=== PATIENT | male | born 1960 | race Caucasian/White ===

== ENCOUNTER → 2018-08-29 | Outpatient (CLI) | payer BC | LOC: GMAH 16:49 | PROVIDERS: ATTEND Family Medicine | DX: M79.609 Pain in unspecified limb (principal) ==

== ENCOUNTER → 2019-05-09 | Outpatient (CLI) | payer BC ==
--- NOTE | 2019-05-09 14:04 | RAD ---
EXAM DESCRIPTION: Lumbar Spine 5 Views CLINICAL HISTORY: LOW BACK PAIN COMPARISON: None Available. TECHNIQUE: AP/lateral/ coned-down lateral/both obliques FINDINGS: Five views of the lumbar spine were obtained. Five nonrib-bearing lumbar segments are noted. Normal spinal alignment without significant listhesis. The vertebral body heights are maintained. No displaced fracture is seen. Mild to moderate multilevel lumbar spine degenerative changes with intervertebral disc height loss and endplate sclerosis. Mild facet arthrosis at L5-S1. There are no abnormalities of the posterior elements demonstrated. L4-L5 interbody spacer is noted without hardware displacement or complication. IMPRESSION: No radiographic evidence of displaced fracture or dislocation of the lumbar spine. L4-L5 interbody spacer without hardware displacement or complication. Electronically signed by: Lonny Acevedo DO 05/09/2019 2:03 PM CDT
== END ==
LOC: LAB.O 12:23
PROVIDERS: ATTEND Family Medicine
DX: Z00.00 Encounter for general adult medical examination without abnormal findings (principal); M54.5 Low back pain

== ENCOUNTER → 2019-09-11 | Outpatient (CLI) | payer BC | LOC: LAB.O 13:16 | PROVIDERS: ATTEND Family Medicine | DX: E78.5 Hyperlipidemia, unspecified (principal) ==

== ENCOUNTER → 2020-06-10 | Outpatient (CLI) | payer BC | LOC: YCFC.O 08:38 | PROVIDERS: ATTEND Family Medicine | DX: I10 Essential (primary) hypertension (principal); E78.1 Pure hyperglyceridemia; R53.83 Other fatigue; Z12.5 Encounter for screening for malignant neoplasm of prostate ==

== ENCOUNTER → 2020-09-09 | Outpatient (CLI) | payer BC | LOC: YCFC.O 13:42 | PROVIDERS: ATTEND Family Medicine | DX: I10 Essential (primary) hypertension (principal); E78.1 Pure hyperglyceridemia; R53.83 Other fatigue; Z12.5 Encounter for screening for malignant neoplasm of prostate; D64.9 Anemia, unspecified; D64.89 Other specified anemias; R73.01 Impaired fasting glucose ==